=== PATIENT | female | born 1965 | race Caucasian/White ===

== ENCOUNTER → 2020-03-23 | Outpatient (CLI) | payer MEDICARE, BC, OTHER ==
[~2020-03-23] MED LIST: ABILIFY10 MG PO; ALLOPURINOL300 MG PO; AMITRIPTYLINE H50 MG PO; AUGMENTIN 875-1 EACH PO; BENTYL 20MG TAB20 MG PO; BUMETANIDE1 MG PO; BUMEX 1MG TABLET1 MG PO; CHANTIX1 MG PO; COZAAR 50MG TAB50 MG PO; FAMOTIDINE20 MG PO; FUROSEMIDE20 MG PO; GABAPENTIN800 MG PO; GLUCOPHAGE 500500 MG PO; HYDROXYZINE HCL25 MG PO; KLONOPIN TAB 00.5 MG PO; LASIX 40 MG TAB40 MG PO; LIPITOR TAB 1010 MG PO; METOPROLOL TART25 MG PO; MYCOSTATIN POWD15 GM TD; NAPROXEN500 MG PO; OXYCODONE HCL15 MG PO; PERCOCET 5-3251 EACH PO; PIOGLITAZONE HC30 MG PO; PROVENTIL HFA 61 INH INH; SPIRONOLACTONE50 MG PO; VENLAFAXINE HCL75 M1 PO; VENTOLIN HFA 66.7 GM INH; VICTOZA 1818 MG/3 ML INJ; VISTARIL 25 MG25 MG PO; VITAMIN B-121000 MCG PO; VITAMIN D2000 UNI1 PO; VYVANSE60 MG PO; XARELTO20 MG PO; ZOFRAN ODT 4 MG4 MG PO; ZOFRAN ODT 4 MG4 MG SL
== END ==
LOC: HEART 5 12-11 15:30
DX: R00.2 Palpitations (principal)

== ENCOUNTER → 2020-05-25 | Outpatient (CLI) | payer MEDICARE, OTHER | LOC: HEART 5 08:08 | DX: R06.02 Shortness of breath (principal) | CPT/HCPCS: 78452; 93306; A9502; J2785 ==

== ENCOUNTER → 2020-06-26 | Outpatient (CLI) | payer MEDICARE, OTHER | LOC: KOH-I 06-23 09:00 | DX: R51.9 Headache, unspecified (principal) | CPT/HCPCS: 70450 ==

== ENCOUNTER 2020-07-02 11:16 | Emergency (ER) | payer MEDICARE, OTHER ==
[~2020-07-02] VITALS: Ht 165.1 cm; Wt 102.5 kg
[2020-07-02 11:56] LABS: HEMOGLOBIN 16.8 gm/dl (12.3-15.3); RED BLOOD COUNT 5.65 M/UL (4.00-5.10); WHITE BLOOD COUNT 16.3 K/UL (4.5-11.0)
== END 2020-07-02 17:20 | disposition other institution (70) ==
LOC: ER1 11:16
PROVIDERS: Family Medicine
DX: I26.99 Other pulmonary embolism without acute cor pulmonale (principal); E11.9 Type 2 diabetes mellitus without complications; F17.200 Nicotine dependence, unspecified, uncomplicated; I48.91 Unspecified atrial fibrillation; Z88.5 Allergy status to narcotic agent; Z20.822 Contact with and (suspected) exposure to COVID-19; R79.89 Other specified abnormal findings of blood chemistry
CPT/HCPCS: 0240U; 36600; 71045; 80053; 82550; 82553; 82803; 83605; 83874; 83880; 84439; 84443; 84484; 85025; 85610; 93005; 96372; 96374; 96376; 99285; J1644; J1650; Q9967

== ENCOUNTER 2020-07-09 14:54 | Emergency (ER) | payer MEDICARE, OTHER ==
[2020-07-09 16:29] LABS: HEMOGLOBIN 16.1 gm/dl (12.3-15.3); RED BLOOD COUNT 5.41 M/UL (4.00-5.10); WHITE BLOOD COUNT 14.3 K/UL (4.5-11.0)
[2020-07-09 17:25] LABS: BUN/CREATININE RATIO 14 (0-10)
== END 2020-07-09 18:06 | disposition home or self-care (01) ==
LOC: ER1 14:54
PROVIDERS: Physician Assistant
DX: I26.99 Other pulmonary embolism without acute cor pulmonale (principal); E11.9 Type 2 diabetes mellitus without complications; I10 Essential (primary) hypertension; Z88.5 Allergy status to narcotic agent; F17.210 Nicotine dependence, cigarettes, uncomplicated; Z86.711 Personal history of pulmonary embolism
CPT/HCPCS: 36600; 71045; 80053; 82550; 82553; 82803; 83874; 83880; 84484; 85025; 93005; 99285

== ENCOUNTER 2021-06-07 17:02 | Emergency (ER) | payer MEDICARE ==
[2021-06-07] MEDS ORDERED: CYCLOBENZAPRINE10 MG PO (22:15)
== END 2021-06-07 22:37 | disposition home or self-care (01) ==
LOC: ER1 17:02
DX: M51.36 Other intervertebral disc degeneration, lumbar region (principal); M48.061 Spinal stenosis, lumbar region without neurogenic claudication; E10.9 Type 1 diabetes mellitus without complications; I10 Essential (primary) hypertension; J44.9 Chronic obstructive pulmonary disease, unspecified; F17.200 Nicotine dependence, unspecified, uncomplicated; Z79.01 Long term (current) use of anticoagulants; Z86.711 Personal history of pulmonary embolism; Z88.5 Allergy status to narcotic agent
CPT/HCPCS: 72131; 99283